=== PATIENT | male | born 1990 | race Caucasian/White ===

== ENCOUNTER 2021-08-11 14:28 | Emergency (ER) | payer MEDICAID ==
[~2021-08-11] VITALS: Ht 172.7 cm; Wt 102.1 kg
[2021-08-11 14:50] VITALS: BP 147/82
[2021-08-11] MEDS ORDERED: CLIN300C12 PO (15:29)
[2021-08-11] MEDS ORDERED: DIPH25CA83 PO (15:29)
== END 2021-08-11 15:44 | disposition home or self-care (01) ==
LOC: ER 14:32
DX: L03.116 Cellulitis of left lower limb (principal); L27.0 Generalized skin eruption due to drugs and medicaments taken internally; T36.8X5A Adverse effect of other systemic antibiotics, initial encounter; Y92.89 Other specified places as the place of occurrence of the external cause; J45.909 Unspecified asthma, uncomplicated